=== PATIENT | male | born 1965 | race Two or more races ===

== ENCOUNTER 2018-01-13 05:21 | Inpatient (IN) | payer OTHER ==
[~2018-01-13] VITALS: Ht 175.3 cm; Wt 87.5 kg
[2018-01-13] VITALS (13 sets, daily range): BP systolic 98–124; BP diastolic 57–78
[~2018-01-13 05:21] MED LIST: NKM
[2018-01-13] MEDS ORDERED: EDURANT25 MG PO (06:11)
[2018-01-13] MEDS ORDERED: TIVICAY50 MG ORAL (06:11)
[2018-01-13] MEDS ORDERED: LEXAPRO20 MG ORAL (06:11)
[2018-01-13] MEDS ORDERED: DESCOVY PO (06:11)
[2018-01-13] MEDS ORDERED: Succinylcholine 20mg/ml 10ml vial ONE (06:44)
[2018-01-13] MEDS ORDERED: Zemuron 50mg/5ml Inj IV ONE (06:44)
[2018-01-13] MEDS ORDERED: Midazolam 2mg/2ml Inj ONE (06:57)
[2018-01-13] MEDS ORDERED: Lidocaine 1% MPF 10mg/ml 5ml ONE (06:57)
[2018-01-13] MEDS ORDERED: fentaNYL 100 mcg/2 mL IV ONE (06:57)
[2018-01-13] MEDS ORDERED: ceFAZolin sod 2 GM in D5W 110 ML IVPB ONE (07:00)
[2018-01-13] MEDS ORDERED: Propofol 1,000mg/ 100ml btl IV ONE (07:00)
[2018-01-13] MEDS ORDERED: EPINEPHrine 1mg/1ml Amp ONE (07:21)
[2018-01-13] MEDS ORDERED: Vancomycin 1gm inj IVPB ONE (07:21)
[2018-01-13] MEDS ORDERED: Bacitracin 50000 Units Vial ONE (07:21)
[2018-01-13] MEDS ORDERED: Bupivacaine 0.5% Inj 30 ml vial INJ ONE (07:21)
--- NOTE | 2018-01-13 07:22 | Pre-Procedure Note/Attestation ---
Pre-Procedure Note/Attestation Complete Prior to Procedure Procedure Narrative: right L4-5 laminotomies, medial facetectomies, foraminotomy and microdiscectomy Indications for Procedure Pre-Operative Diagnosis: lumbar radiculopathy and hnp Attestation I attest that I discussed the nature of the procedure; its benefits; risks and complications; and alternatives (and the risks and benefits of such alternatives ), prior to the procedure, with the patient (or the patient's legal promotional representative). I attest that, if there was a reasonable possibility of needing a blood transfusion, the patient (or the patient's legal promotional representative) was given the [facility] standardized written summary, pursuant to the Noble [place] Blood Safety Act ([place] Health and Safety Code # 1645, as amended). I attest that I re-evaluated the patient just prior to the surgery and that there has been no change in the patient's H&P, except as documented below: Devon Leo MD January 13, 2018 07:22
[2018-01-13] MEDS ORDERED: Thrombin 5000 units TOPIC ONE (07:27)
[2018-01-13] MEDS ORDERED: Sterile Water Irrig 1000ml IRRIG ONE (08:00)
[2018-01-13] MEDS ORDERED: LR 1000ml ONE (08:00)
[2018-01-13] MEDS ORDERED: NS Irrig 1000ml ONE (08:00)
[2018-01-13] MEDS ORDERED: Glycopyrrolate 0.2mg/ml 1ml Vial ONE (08:25)
[2018-01-13] MEDS ORDERED: Ketorolac 30mg Inj ONE (08:26)
[2018-01-13] MEDS ORDERED: Morphine Sulfate 10mg/ml Inj ONE (08:28)
[2018-01-13] MEDS ORDERED: Sodium Chloride 10ml vial INJ ONE (08:29)
[2018-01-13] MEDS ORDERED: LR 1000ml 1,000 ML IVLG SCH (08:37)
--- NOTE | 2018-01-13 08:37 | Anethesia Preoperative Eval ---
Anesthesia Pre-op PMH/ROS General Date of Evaluation: January 13, 2018 Time of Evaluation: 07:15 Anesthesiologist: Esther ASA Score: ASA 2 Mallampati Score Class I : Soft palate, uvula, fauces, pillars visible Class II: Soft palate, uvula, fauces visible Class III: Soft palate, base of uvula visible Class IV: Only hard plate visible Mallampati Classification: Class II Surgeon: Felipa Diagnosis: Lumbar radiculopathyt Surgical Procedure: L4-L5 laminotomy Anesthesia History: none Family History: no anesthesia problems Allergies: Coded Allergies: No Known Allergies (Unverified , 01/12/18) Medications: see eMAR Past Medical History Cardiovascular: Denies: HTN, CAD, [place], valve dz, arrhythmia, other Pulmonary: Denies: asthma, COPD, CRIS, other Gastrointestinal/Genitourinary: Reports: GERD - mild; Denies: CRI, ESRD, other Neurologic/Psychiatric: Reports: depression/anxiety; Denies: dementia, CVA, TIA, other Endocrine: Denies: DM, hypothyroidism, steroids, other HEENT: Denies: cataract (L), cataract (R), glaucoma, [place] (L), [place] (R), other Hematology/Immune: Reports: other - 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 Exam Physician Exam Last Vital Signs Date Time Temp Pulse Resp B/P (MAP) Pulse Ox O2 Delivery O2 Flow Rate FiO2 01/13/18 06:22 97.5 60 20 120/70 96 Room Air 97.5 Constitutional: NAD Neurologic: CN 2-12 intact Cardiovascular: RRR, no M/R/G Respiratory: CTA Gastrointestinal: S/NT/ND Airway Exam Mallampati Score: Class II MO: limited Neck: stiff ROM: limited Dentures: no upper, no lower Anesthesia Pre-op A/P Labs see chart Studies Pre-op Studies: EKG - NSR, CXR - WNL Risk Assessment & Plan Assessment: ASA 2 Plan: GA with ETT prone position, neuromonitoring Status Change Before Surgery: No Pre-Antibiotics Drug: Ancef 2 gr. Given Within 1 Hr of Incision: Yes Time Given: 07:46 Andrae Santana MD January 13, 2018 08:37
[2018-01-13] MEDS ORDERED: Meperidine 50mg/ml Inj(FOR RIGORS ONLY) IV PRN (08:45)
[2018-01-13] MEDS ORDERED: Metoclopramide 10mg/2ml Inj IVP PRN (08:45)
[2018-01-13] MEDS ORDERED: Ketorolac 30mg Inj IV PRN (08:45)
[2018-01-13] MEDS ORDERED: DiphenhydrAMINE 50mg/ml Inj IVP PRN (08:45)
[2018-01-13] MEDS ORDERED: Acetaminophen (Non formulary) 100 ML IV ONE (08:45)
[2018-01-13] MEDS ORDERED: fentaNYL 100 mcg/2 mL IV PRN (08:45)
[2018-01-13] MEDS ORDERED: Midazolam 2mg/2ml Inj IVP PRN (08:45)
--- NOTE | 2018-01-13 09:34 | Brief Operative Note ---
Immediate Post Operative Note Operative Note Pre-op Diagnosis: lumbar radiculopathy and hnp Procedure: L4-5 laminotomies, medial facetectomies, foraminotomies and microdiscectomy Post-op Diagnosis: same as pre-op Findings: consistent w/pre-op dx studies Surgeon: CAROLE Porcelain Enamel Laborer: AUDIE Anesthesiologist: VIRGILIO Specimen: yes Complications: none Condition: stable Fluids: 1000CC Estimated Blood Loss: volume - 10CC Drains: none Implant(s) used?: No Devon Leo MD January 13, 2018 09:34
--- NOTE | 2018-01-13 10:02 | Immediate Post-Op Evaluation ---
Immediate Post-Op Evalulation Immediate Post-Op Evalulation Procedure: L4-L5 laminotomy with discectomy and decompression Date of Evaluation: January 13, 2018 Time of Evaluation: 10:01 IV Fluids: 1100 Blood Products: none Estimated Blood Loss: <50 Urinary Output: none Blood Pressure Systolic: 122 Blood Pressure Diastolic: 68 Pulse Rate: 72 Respiratory Rate: 20 O2 Sat by Pulse Oximetry: 99 Temperature (Fahrenheit): 97.8 Pain Score (1-10): 2 Nausea: No Vomiting: No Complications none Patient Status: reacts, patent, extubated, none Hydration Status: adequate Andrae Santana MD January 13, 2018 10:02
[2018-01-13] MEDS ORDERED: Morphine Sulfate 4mg/ml Inj SUBQ PRN ×2 (12:00)
[2018-01-13] MEDS ORDERED: D5 1/2NS 1,000 ML IV SCH (12:00)
[2018-01-13] MEDS ORDERED: Naloxone 0.4mg/ml Inj IVP PRN (12:00)
--- NOTE | 2018-01-13 14:33 | History and Physical ---
History of Present Illness Present Illness Allergies: Coded Allergies: No Known Allergies (Unverified , 01/12/18) Medication History Scheduled Dolutegravir Sodium (Tivicay), 50 MG ORAL DAILY, (Reported) Escitalopram Oxalate* (Lexapro*), 20 MG ORAL DAILY, (Reported) No Known Medications* (NKM - No Known Medications*), 0 ., (Reported) Rilpivirine Hcl (Edurant), 25 MG PO da, (Reported) [Descovy], 200 MG PO DA, (Reported) Patient History Healthcare decision maker PATIENT Resuscitation status Full Code Advanced Directive on File Physical Exam Last 24 Hour Vital Signs Date Time Temp Pulse Resp B/P (MAP) Pulse Ox O2 Delivery O2 Flow Rate FiO2 01/13/18 12:20 98.4 60 18 112/66 95 Nasal Cannula 3.0 98.4 01/13/18 11:25 98.4 66 18 98/62 95 Nasal Cannula 3.0 98.4 01/13/18 11:05 97.3 68 18 102/57 95 Nasal Cannula 3.0 97.3 01/13/18 10:41 97.2 66 18 110/65 100 Nasal Cannula 3.0 97.2 01/13/18 10:38 69 18 100/68 100 Nasal Cannula 3.0 01/13/18 10:29 96.8 01/13/18 10:25 71 18 107/64 100 Nasal Cannula 3.0 01/13/18 10:15 72 18 116/67 100 Simple Mask 7.0 01/13/18 10:02 96.8 01/13/18 10:02 72 20 99 01/13/18 10:00 67 20 106/69 100 Simple Mask 7.0 01/13/18 09:55 67 20 107/70 100 Simple Mask 7.0 01/13/18 09:50 96.8 74 20 103/69 100 Simple Mask 7.0 96.8 01/13/18 06:22 97.5 60 20 120/70 96 Room Air 97.5 Height (Feet): 5 Height (Inches): 9.00 Weight (Pounds): 193 Medications Current Medications Medications (Trade) Dose Ordered Sig/Ling Route PRN Reason Start Time Stop Time Status Last Admin Dose Admin Acetaminophen (Tylenol) 650 mg Q4H PRN ORAL headache or temp>101 01/13/18 12:00 02/12/18 11:59 Cefazolin Sodium 1 gm/Dextrose 110 ml @ 220 mls/hr Q8H IV 01/13/18 15:30 01/14/18 07:59 Dextrose/Sodium Chloride 1,000 ml @ 100 mls/hr Q10H IV 01/13/18 12:00 02/12/18 11:59 01/13/18 12:01 Docusate Sodium (Colace) 100 mg TWICE A DAY ORAL 01/13/18 18:00 02/12/18 17:59 Morphine Sulfate (Morphine Sulfate) 4 mg Q3H PRN SUBQ Severe Pain (Pain Scale 7-10) 01/13/18 12:00 01/20/18 11:59 01/13/18 12:20 Morphine Sulfate (Morphine Sulfate) 4 mg Q4H PRN SUBQ Moderate Pain (Pain Scale 4-6) 01/13/18 12:00 01/20/18 11:59 Naloxone HCl (Narcan) 0.1 mg PRN PRN IVP RR<12/min, pt unarousable 01/13/18 12:00 02/12/18 11:59 Blade Putnam MD January 13, 2018 14:33
[2018-01-13] MEDS ORDERED: ceFAZolin sod 1 GM in D5W 110 ML IV SCH (15:30)
[2018-01-13] MEDS ORDERED: SOMA350 MG PO (16:51)
[2018-01-13] MEDS ORDERED: NORCO 5-325 TA1 EACH ORAL (16:51)
[2018-01-13] MEDS ORDERED: NAPROXEN250 MG ORAL (16:52)
[2018-01-13] MEDS ORDERED: Docusate 100mg cap ORAL SCH (18:00)
--- NOTE | 2018-01-14 22:32 | Operative Note - Dictated ---
DATE OF OPERATION: 01/13/2018 PREOPERATIVE DIAGNOSIS: L4-L5 disc protrusion with stenosis and compression with right lower extremity radiculopathy. POSTOPERATIVE DIAGNOSIS: L4-L5 disc protrusion with stenosis and compression with right lower extremity radiculopathy. PROCEDURE PERFORMED: 1. Right-sided L4-5 medial facetectomy, laminotomy, foraminotomy and microdiskectomy. 2. Intraoperative use of microscope for microdissection. SURGEON: Devon Loe M.D. STOCK HOLDER: Bobby Currie M.D. ANESTHESIOLOGIST: Andrae Santana M.D. ANESTHESIA: General endotracheal anesthesia. INTRAOPERATIVE FINDINGS: L4-L5 disc protrusion with stenosis and impingement of the traversing L5 nerve root as well as foraminal stenosis. ESTIMATED BLOOD LOSS: 10 mL. FLUIDS: 1000 mL of crystalloid. INDICATIONS: This patient has failed nonoperative treatment, and options for above the above treatment was given. Risks, alternatives, and benefits were discussed with the patient. The patient wished to proceed. Consent form was signed. DESCRIPTION OF OPERATION: The patient brought to the operating room supine on a stretcher. Subsequently, appropriate IV lines were placed and 2 g of Ancef was administered. Anesthesia was induced. The patient was successfully intubated. A surgical time-out was called. Consent form and surgical site were reviewed. Sequential compression devices were placed onto the bilateral lower extremities. The patient was gently turned over prone onto the Hardik frame table. All bony prominences were well padded and the abdomen was assured to lay freely. The L4-L5 interspace was positively identified preoperatively via fluoroscopy. The patient was prepped and draped in the usual sterile fashion with alcohol, ChloraPrep and Ioban draping. At this point, the intraoperatively sterilely draped microscope was brought into the field and a midline incision was carried out with a #15 scalpel. At this point, subperiosteal dissection was carried out with monopolar cautery towards the right side of the lamina at L4 and L5. The lateral facet joint capsule was well preserved. A blacking machine operator retractors were set into place and a radiopaque marker was placed at the pedicle level. The L5 pedicle was identified and thus the L4-L5 interspace was positively identified. The intraoperatively sterilely draped microscope was used for microdissection of the neural elements including the traversing L5 nerve root and for microdiskectomy. Now attention was diverted to the interlumbar laminotomy and with a high-speed drill, straight and curved curette, #2 through #5 Kerrison punches, interlumbar laminotomy of the lamina of L4 and L5 on the right side was done and medial facetectomy was accomplished and the ligamentum flavum, which was hypertrophied, was removed and a decompression of the lateral recess entailed with #2 Kerrison punches. The exiting nerve root was also decompressed. Now, with a Quebeck 4 retractor as well as a nerve root retractor, the neural elements were carefully retracted medially and a large disc herniation was found at L4-L5 on the right side impinging onto the neural elements and the traversing L5 nerve root. At this point with a #11 blade, a cruciate incision was made into the posterior annulus and with the use of a Macdonald rongeur, Yesenia curette, nerve hook, Oliver probe, a diskectomy was carried out. A microdissection and neurolysis of the nerve of the traversing nerve was done as well. All loose disc material was removed. Pituitary rongeurs, Peapod rongeur, forward angled pituitary rongeurs were also used. Disk space irrigation was used. All loose debris was removed. By the end of the diskectomy, the floor of the canal was flat. The foraminal space, lateral recess, subarticular recess, and central canal were found to be completely decompressed. A Valsalva at 40 mmHg was done. There was no CSF leak. At this point, further checking revealed complete decompression. Hemostasis was achieved with Gelfoam, thrombin, FloSeal and bipolar cautery. Attention was now diverted to closure. The dorsal lumbar fascia was closed with #1 Vicryl sutures in a watertight interrupted fashion. The subdermal and subcuticular layers were closed with 2-0 Vicryl sutures. The skin was closed with Dermabond. Sterile dressing and tape were placed. All sponge, needle, and instrument counts were correct. EMG and SSEP neuromonitoring was done throughout the case and remained stable with no activity during the decompression and now the patient was turned supine, was extubated in stable condition, was taken to the recovery room in stable condition, and found to be neurovascularly intact. Devon Leo M.D. DR: LAMONT JOB#: [id number] CC:
--- NOTE | 2018-01-15 13:30 | Discharge Summary ---
Discharge Summary Discharge Summary _ DATE OF ADMISSION: 01/13/2018 DATE OF DISCHARGE: 01/13/2018 CONSULTANTS: Dr. Blade Putnam BRIEF HOSPITAL COURSE: Patient is a 52-year-old male who was diagnosed with L4-L5 disc protrusion with stenosis and compression presenting with right lower extremity radiculopathy was admitted and underwent right-sided L4-L5 medial facetectomy, laminotomy, foraminotomy and microdiscectomy. He tolerated procedure well and postoperatively was given pain management. He was placed on SCDs for DVT prophylaxis. He was encouraged use of incentive spirometry. Diet was advanced. His vitals were stable and had good pain control. He was ambulating well. He was eventually discharged home. FINAL DIAGNOSES: L4-L5 disc protrusion with stenosis and radiculopathy Status post L4-L5 medial facetectomy, laminotomy, foraminotomy and microdiscectomy (Please refer to operative report) DISPOSITION: Patient was discharged home. DISCHARGE MEDICATIONS: Refer to Discharge Medication List. DISCHARGE INSTRUCTIONS: Follow up in a week. I have been assigned to dictate discharge summary on this account, and I was not involved in the patient's management. Yessy Cisneros NP Jan 15, 2018 13:30
--- NOTE | 2018-01-18 15:08 | Diagnostic Imaging Report ---
Indication: Pain, intraoperative Technique: Intraoperative imaging Comparison: none Findings: Single lateral view demonstrates a surgical tool projected posterior to what is presumably the L5 vertebral body Impression: Intraoperative imaging, as described
== END 2018-01-13 19:57 | disposition home or self-care (01) | DRG 518 ==
LOC: SDSOVERFLO 05:21 → 3E 11:07
PROC: 01NB0ZZ Release Lumbar Nerve, Open Approach (ICD-10-PCS; principal; 2018-01-13 07:30)
PROC: 0SB20ZZ Excision of Lumbar Vertebral Disc, Open Approach (ICD-10-PCS; principal; 2018-01-13 07:30)
DX: M51.16 Intervertebral disc disorders with radiculopathy, lumbar region (principal); B20 Human immunodeficiency virus [HIV] disease; M48.061 Spinal stenosis, lumbar region without neurogenic claudication; K21.9 Gastro-esophageal reflux disease without esophagitis; F41.8 Other specified anxiety disorders
CPT/HCPCS: 36415; 72020; 76001; 86850; 86900; 86901; 87081; 94003; 94150; J2250; J2405

== ENCOUNTER 2018-02-04 13:09 | Inpatient (IN) | payer OTHER ==
[2018-02-04] VITALS (9 sets, daily range): BP systolic 114–137; BP diastolic 62–87
[~2018-02-04] VITALS: Ht 175.3 cm; Wt 88.5 kg
[~2018-02-04 13:09] MED LIST changes: +DESCOVY PO; +EDURANT25 MG PO; +LEXAPRO20 MG ORAL; +NAPROXEN250 MG ORAL; +NORCO 5-325 TA1 EACH ORAL; +SOMA350 MG PO; +TIVICAY50 MG ORAL
[2018-02-04] MEDS ORDERED: Zemuron 50mg/5ml Inj IV ONE ×2 (13:46→14:44)
[2018-02-04] MEDS ORDERED: Propofol 200mg/20ml IV ONE (13:49)
[2018-02-04] MEDS ORDERED: Lidocaine 1% MPF 10mg/ml 5ml ONE (13:49)
[2018-02-04] MEDS ORDERED: Dexamethasone 4mg/ml vial ONE (13:52)
[2018-02-04] MEDS ORDERED: Lacri-Lube Opth Oint 3.5gm ONE (13:59)
[2018-02-04] MEDS ORDERED: EPINEPHrine 1mg/1ml Amp ONE (13:59)
[2018-02-04] MEDS ORDERED: Vancomycin 1gm inj IVPB ONE ×2 (14:00→17:01)
[2018-02-04] MEDS ORDERED: Thrombin 5000 units TOPIC ONE (14:01)
[2018-02-04] MEDS ORDERED: Bupivacaine 0.5% Inj 30 ml vial INJ ONE (14:01)
[2018-02-04] MEDS ORDERED: Bacitracin 50000 Units Vial ONE (14:01)
[2018-02-04] MEDS ORDERED: fentaNYL 100 mcg/2 mL IV ONE ×2 (14:05→17:42)
[2018-02-04] MEDS ORDERED: Succinylcholine 20mg/ml 10ml vial ONE (14:05)
[2018-02-04] MEDS ORDERED: Ketamine 500mg Inj ONE (14:07)
[2018-02-04] MEDS ORDERED: ZYRTEC10 MG ORAL (14:20)
[2018-02-04] MEDS ORDERED: NS Irrig 1000ml ONE (14:50)
[2018-02-04] MEDS ORDERED: NS 275ml ONE (14:50)
[2018-02-04] MEDS ORDERED: LR 1000ml ONE (14:50)
[2018-02-04] MEDS ORDERED: Propofol 1,000mg/ 100ml btl IV ONE (14:50)
[2018-02-04] MEDS ORDERED: Sterile Water Irrig 1000ml IRRIG ONE (14:50)
--- NOTE | 2018-02-04 14:52 | Infectious Diseases Prog Note ---
Assessment/Plan Assessment/Plan Full consult dictated: A) 1) possible lumbar spine/back post-operative abscess vs hematoma 2) s/p L4-L5 laminotomy, facetectomy, foraminotomy and microdiskectomy for L4 -L5 protrusion with stenosis and compression and right lower extremity radiculopathy 3) HIV, gerd, depression/anxiety 4) allergies - negative 5) sh-negative, mar noted, notes and records noted 6) d/w RN P) 1) patient for surgery today for possible I/D and cultures 2) post-operative vancomycin and cefepime 3) f/u on labs and cultures 4) d/w Dr. Leo 5) thank you Subjective Allergies: Coded Allergies: No Known Allergies (Unverified , 01/12/18) Objective Vital Signs Last 24 Hour Vital Signs Date Time Temp Pulse Resp B/P (MAP) Pulse Ox O2 Delivery O2 Flow Rate FiO2 02/04/18 14:21 98.2 63 18 129/80 95 Room Air 98.2 Height (Feet): 5 Height (Inches): 9.00 Weight (Pounds): 195 Shanell Doe MD Feb 04, 2018 14:52
--- NOTE | 2018-02-04 14:56 | Anethesia Preoperative Eval ---
Anesthesia Pre-op PMH/ROS General Date of Evaluation: Feb 04, 2018 Time of Evaluation: 14:10 Anesthesiologist: ASA Score: ASA 3 Mallampati Score Class I : Soft palate, uvula, fauces, pillars visible Class II: Soft palate, uvula, fauces visible Class III: Soft palate, base of uvula visible Class IV: Only hard plate visible Mallampati Classification: Class II Surgeon: eliezer Diagnosis: lumbar radiculopathy Surgical Procedure: reexploration L4,5 laminectomy, excision of mass, decompress Anesthesia History: none Allergies: Coded Allergies: No Known Allergies (Unverified , 01/12/18) Past Medical History Cardiovascular: Denies: HTN, CAD, DC, valve dz, arrhythmia, other Pulmonary: Denies: asthma, COPD, CRIS, other Gastrointestinal/Genitourinary: Denies: GERD, CRI, ESRD, other Neurologic/Psychiatric: Reports: depression/anxiety; Denies: dementia, CVA, TIA, other Endocrine: Reports: other; Denies: DM, hypothyroidism, steroids HEENT: Denies: cataract (L), cataract (R), glaucoma, [place] (L), [place] (R), other Hematology/Immune: Reports: other - HIV; Denies: anemia, DVT, bleeding disorder Anesthesia Pre-op Phys. Exam Physician Exam Last Vital Signs Date Time Temp Pulse Resp B/P (MAP) Pulse Ox O2 Delivery O2 Flow Rate FiO2 02/04/18 14:21 98.2 63 18 129/80 95 Room Air 98.2 Constitutional: NAD Cardiovascular: RRR Respiratory: CTA Gastrointestinal: S/NT/ND Airway Exam Mallampati Score: Class II MO: full ROM: full Teeth: intact Anesthesia Pre-op A/P Risk Assessment & Plan Assessment: asa 3 Plan: etga Pre-Antibiotics Drug: ancef 2 grams Given Within 1 Hr of Incision: Yes Time Given: 15:45 Erendira Keller M.D. Feb 04, 2018 14:56
--- NOTE | 2018-02-04 15:01 | Pre-Procedure Note/Attestation ---
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 I attest that, if there was a reasonable possibility of needing a blood transfusion, the patient (or the patient's legal freight representative) was given the [facility] standardized written summary, pursuant to the [place] Blood Safety Act ([place] Health and Safety Code # 1645, as amended). I attest that I re-evaluated the patient just prior to the surgery and that there has been no change in the patient's H&P, except as documented below: Devon Leo MD Feb 04, 2018 15:01
[2018-02-04] MEDS ORDERED: LR 1000ml 1,000 ML IVLG SCH (17:11)
[2018-02-04] MEDS ORDERED: Midazolam 2mg/2ml Inj IVP PRN (17:15)
[2018-02-04] MEDS ORDERED: DiphenhydrAMINE 50mg/ml Inj IVP PRN (17:15)
[2018-02-04] MEDS ORDERED: Labetalol 5mg/ml 20ml vial IV PRN (17:15)
[2018-02-04] MEDS ORDERED: Hydromorphone 0.5mg/0.5ml inj IVP PRN (17:15)
[2018-02-04] MEDS ORDERED: fentaNYL 100 mcg/2 mL IV PRN (17:15)
--- NOTE | 2018-02-04 17:17 | Immediate Post-Op Evaluation ---
Immediate Post-Op Evalulation Immediate Post-Op Evalulation Procedure: reexploration L4,5, laminectomy,excision Date of Evaluation: Feb 04, 2018 Time of Evaluation: 17:44 IV Fluids: LR 700ml Blood Products: 0 Estimated Blood Loss: 50ml Urinary Output: 100ml Blood Pressure Systolic: 137 Blood Pressure Diastolic: 87 Pulse Rate: 77 Respiratory Rate: 25 O2 Sat by Pulse Oximetry: 99 Temperature (Fahrenheit): 98 Pain Score (1-10): 8 Nausea: No Vomiting: No Complications none Patient Status: awake, patent, none Hydration Status: adequate Drug: ancef 2 gram Given Within 1 Hr of Incision: Yes Time Given: 15:45 Erendira Keller M.D. Feb 04, 2018 17:17
--- NOTE | 2018-02-04 17:39 | Brief Operative Note ---
Immediate Post Operative Note Operative Note Pre-op Diagnosis: epidural mass s/p microdiscectomy at L4-5 Procedure: re-exploration L4-5, laminectomy, excision of mass Post-op Diagnosis: same as pre-op Findings: consistent w/pre-op dx studies Surgeon: Felipa Android Architect: Kush Anesthesiologist: Anesthesia: general Specimen: yes Complications: none Condition: stable Fluids: 700cc Estimated Blood Loss: volume - 50cc Drains: hemovac Implant(s) used?: No Devon Leo MD Feb 04, 2018 17:39
[2018-02-04] MEDS ORDERED: Morphine Sulfate 4mg/ml Inj IV PRN (17:45)
[2018-02-04] MEDS ORDERED: Morphine Sulfate 2mg/ml Inj IV PRN (17:45)
[2018-02-04] MEDS ORDERED: HYDROcodone/Acetamin 7.5/325 tab ORAL PRN (17:45)
[2018-02-04] MEDS ORDERED: Norco 5mg/325mg tab ORAL PRN (17:45)
[2018-02-04] MEDS ORDERED: Naloxone 0.4mg/ml Inj IVP PRN (17:45)
[2018-02-04] MEDS: D5 1/2NS 1,000 ML IV SCH (20:24)
[2018-02-04] MEDS: Morphine Sulfate 4mg/ml Inj IV PRN (21:23)
[2018-02-04] MEDS: ceFAZolin sod 1 GM in D5W 110 ML IV SCH (23:45)
[2018-02-05] VITALS: BP 102/59
[2018-02-05] MEDS: Morphine Sulfate 4mg/ml Inj IV PRN ×3 (01:22→21:43)
--- NOTE | 2018-02-05 01:30 | Consultation ---
DATE OF CONSULTATION: 02/04/2018 INFECTIOUS DISEASE CONSULTATION CONSULTING PHYSICIAN: Shanell Doe M.D. ATTENDING PHYSICIAN: Devon Leo M.D. REFERRING PHYSICIAN: Devon Leo M.D. REASON FOR CONSULTATION: Possible lumbar spine/back abscess versus hematoma. CHIEF COMPLAINT: The patient's chief complaint coming in to the hospital is L4-L5 mass and excision. HISTORY OF PRESENT ILLNESS: This is a very pleasant 52-year-old male, who I saw in the preop area at [facility], who several weeks ago, I believe three weeks ago, exact date was 01/13/2018, had a history of L4-L5 disc protrusion with stenosis and compression with the right lower extremity radiculopathy. The patient underwent L4-L5 medial laminotomy, micro diskectomy, facetectomy, laminotomy, and foraminotomy. The patient now presents with back pain. An MRI showed that he had L4-L5 mass of questionable abscess versus hematoma. Case was discussed with Dr. Leo. Infectious Disease consultation is requested for assisting this patient. PAST MEDICAL HISTORY: Per the records, the patient has history of L4-L5 protrusion and stenosis with right lower extremity radiculopathy, status post surgery for that as discussed including the L4-L5 microdiskectomy, foraminotomy, laminotomy, and facetectomy. The patient also has history of GERD per the records, anxiety and depression per the records, and history of HIV per the records. MEDICATIONS: During I think in the preop area, he has gotten fentanyl, ketamine, and Versed. On reviewing the MAR, it looks like vancomycin was given, epinephrine, dexamethasone, Zofran, propofol, lidocaine, famotidine, and Zemuron. On review of his medical reconciliation, he is on Lexapro, Tivicay, Zyrtec, Soma, hydrocodone, Naprosyn, Edurant, and Descovy once 200 mg, it looks like daily and Tivicay is 50 mg daily. ALLERGIES: No known drug allergies. SOCIAL HISTORY: Negative for smoking, alcohol, or drug abuse. FAMILY HISTORY: Noncontributory. REVIEW OF SYSTEMS: The patient's main issue is the back pain. He denies any shortness of breath, chest pain, nausea, vomiting, or diarrhea. No urinary symptoms mentioned. No headache, change in vision, or rash, but he did have back pain. As discussed earlier, he has a history of right lower extremity radiculopathy. PHYSICAL EXAMINATION: VITAL SIGNS: Currently, temperature is 98.2, pulse rate is 60, respiratory rate 18, blood pressure 129/80, and saturation 95%. GENERAL: Alert, responsive, and oriented x3. HEAD AND NECK: Oral, no thrush. Eye exam, no icterus. Normocephalic. HEART: Regular. No gallop or murmur. ABDOMEN: Soft. Positive bowel sounds. Nontender. LUNGS: Clear. Bilateral rhonchi and rales. SKIN: No obvious rash. MUSCULOSKELETAL: Limited. He is able to move all 4 extremities. NEUROLOGIC: Seems to be intact and nonfocal. Otherwise, exam is deferred since he is in the preop area. He is alert and oriented x3. GENITOURINARY: Did not see any obvious [place] at this time. Deferred. LABORATORY AND DIAGNOSTIC DATA: Laboratory data pending. On discussion with Dr. Leo, the MRI showed L4-L5 spine mass, unclear hematoma versus abscess. ASSESSMENT AND PLAN: 1. The patient has L4-L5 mass, which could be a hematoma versus abscess. The patient will be undergoing operation soon for possible excision of the mass and evaluation. Cultures will be taken. At this time, we will give the patient antibiotics, vancomycin and cefepime postoperatively if indicated and then we will follow up on the cultures. Watch the patient's laboratories closely. We will follow up postop on this patient and again assess the L4-L5 level. 2. The patient has a history of L4-L5 protrusion with stenosis, compression of right lower extremity radiculopathy, status post L4-L5 laminectomy, facetectomy, foraminotomy, and microdiskectomy. 3. History of human immunodeficiency virus. We will continue antiretrovirals including Descovy and Tivicay. The patient should be followed as an outpatient by his primary physician, who is treating him for this. 4. History of gastroesophageal reflux disease per the record. 5. History of depression and anxiety per the record. 6. Pain management per Surgery. 7. Allergies are negative. 8. Social history is negative. 9. Family history is noncontributory. 10. MAR is noted. 11. Case was discussed with RN in the preop area. 12. Case was discussed with Dr. Loe. 13. Case was discussed with the patient. 14. Continue treatment per Dr. Leo and consultants. 15. Notes and records were noted. Orders were noted. Shanell Doe M.D. DR: AMBAR JOB#: [id number] CC: JOSH
[2018-02-05 04:00] VITALS: BP 111/68
[2018-02-05] MEDS: D5 1/2NS 1,000 ML IV SCH (05:37)
[2018-02-05] MEDS: ceFAZolin sod 1 GM in D5W 110 ML IV SCH ×2 (08:05→15:34)
--- NOTE | 2018-02-05 08:49 | 48 Hour Post Anesthesia Eval ---
Post Anesthesia Evaluation Procedure: reexploration L4,5, laminectomy,excision Date of Evaluation: Feb 05, 2018 Time of Evaluation: 08:48 Blood Pressure Systolic: 116 0: 68 Pulse Rate: 72 Respiratory Rate: 22 Temperature (Fahrenheit): 97.8 O2 Sat by Pulse Oximetry: 98 Airway: patent Nausea: No Vomiting: No Pain Intensity: 4 Hydration Status: adequate Cardiopulmonary Status: stable Mental Status/LOC: patient returned to baseline Follow-up Care/Observations: n/a Post-Anesthesia Complications: none Follow-up care needed: N/A Andrae Santana MD Feb 05, 2018 08:49
[2018-02-05] MEDS: Docusate 100mg cap ORAL SCH ×2 (09:05→17:31)
[2018-02-05] MEDS: HYDROcodone/Acetamin 7.5/325 tab ORAL PRN ×3 (09:05→17:31)
[2018-02-05] MEDS ORDERED: Tubing IV Secondary IV ONE (10:34)
[2018-02-05] MEDS ORDERED: D5 1/2NS 1000ml IV ONE (10:34)
--- NOTE | 2018-02-05 11:22 | General Progress Note ---
Progress Note Progress Note Pt doing well post op no leg pain moderate lbp avss a and o times 3 5/5 ble calves soft and nt hv 50 cc lt intact a: doing well post op p: pain meds awaitng final path results oob and pt brace spinal precautions anticipate dc tomorrow Devon Leo MD Feb 05, 2018 11:22
--- NOTE | 2018-02-05 18:15 | Operative Note - Dictated ---
DATE OF OPERATION: 02/04/2018 PREOPERATIVE DIAGNOSES: L4-L5 mass with compression of thecal sac and right traversing and exiting L4 and L5 nerve roots with severe right lower extremity radiculopathy, status post lumbar microdiskectomy and microdecompression on 01/13/2018. POSTOPERATIVE DIAGNOSES: L4-L5 mass with compression of thecal sac and right traversing and exiting the L4 and L5 nerve roots with severe right lower extremity radiculopathy, status post lumbar microdiskectomy and microdecompression on 01/13/2018. PROCEDURE PERFORMED: 1. Re-exploration, L4-L5. 2. Laminectomy, L4-L5. 3. Excision of mass at L4-L5 with microdissection and decompression of neural elements. 4. Intraoperative use of microscope. SURGEON: Devon Leo M.D. CRANKSHAFT GRINDER: Bobby Currie M.D. ANESTHESIA: General endotracheal anesthesia. ANESTHESIOLOGIST: Erendira Keller M.D. INTRAOPERATIVE FINDING: Large fibrocartilaginous mass compressing the thecal sac and the right exiting and traversing nerve root at L4-L5. EBL: 50 mL. FLUIDS: 700 mL. SPECIMEN: Mass sent for specimen analysis. INDICATIONS: The patient is a pleasant gentleman who underwent microdissection and microdiskectomy right L4-L5 on 01/13/2018. Postoperatively, he presented with worsening right lower extremity pain. Postoperative MRI of the lumbar spine with and without contrast revealed a large mass compressing the thecal sac and the right exiting L4 nerve root and the right traversing L5 nerve root. This was a rim enhancing lesion on MRI. The patient also had preoperative venous Doppler, which was negative for DVT. Recommendation for re-exploration at L4-L5 laminectomy, decompression, and excision of mass was made for the patient. Risks, alternatives, and benefits were discussed with the patient at length, which included, but not limited to anesthesia complications including , medical complications including liver, kidney, cardiopulmonary deficits, bleeding, infection, dural tear, CSF leak, nerve root injury, pars fracture, instability, and reherniation as well as continued symptoms. The patient understood and wished to proceed. DESCRIPTION OF OPERATION: The patient was brought into the operating room supine on a stretcher. Appropriate IV lines were placed by the anesthesiologist. Anesthesia was induced. The patient was successfully intubated. Sequential compression devices were placed onto the bilateral lower extremities. A Velasco was placed under sterile conditions. Neural monitoring leads were placed and initial neural monitoring revealed a significant decrease at posterior to the right L4 nerve root, which by the end of the decompression returned to normal. At this point, all bony prominences were well padded. The abdomen was assured to lay freely. Myself and my bookkeeper assistant were prepped and gowned as well. At this point, the intraoperatively sterilely draped microscope was brought into the field and an incision was made overlying the previous incision with slight extension caudal and cephalad. Dissection was carried out on the left side at the lamina of L4 and L5. The left facet joint capsule was well preserved. Dissection at right L4-L5 was also done and Vicky retractors were set into place. Significant amount of scar was found at the right L4-L5 interlaminar facet indicative of the previous surgery at right L4-L5 where microdissection and microdiskectomy were previously done on 01/13/2018. At this point, attention was diverted to extend the laminotomy to laminectomy. A complete laminectomy at L4-L5 was done with the use of Le[place]ell rongeur, straight and curved curettes, #2 through #5 Kerrison punches, and a high-speed drill. There was extensive amount of epidural scar over the dura at L4-L5 on the common dural sac. Once the laminectomy was completed, the ligamentum flavum on the left side was also removed at L4-L5 and at this point, microdissection of the neural elements revealed a large fibrocartilaginous mass, presumably a recurrent disc herniation, which was causing significant compression of the thecal sac and the right L4 exiting nerve root and the right L5 traversing nerve root. With a curved curette, the fibrocartilaginous mass was dissected away from the dura. There was significant amount of scar and the fibrocartilaginous mass was removed in total and sent off to pathology. Frozen section by the pathologist was done during the operation and she came down to the operating room and was reported that her initial description was that this is a fibrocartilaginous disc height material and presumably, a recurrent disk herniation at L4-L5. At this point, Valsalva at 40 mmHg was done. There was no CSF leak. Copious triple antibiotic solution was also placed. Of note, right after the incision was made, culture swabs were taken for Gram stain as well as cultures. Immediately after the cultures were taken, 2 g of Ancef was administered IV intraoperatively. Now, attention was diverted to microdissection. Further inspection of the annulotomy from the surgery from 01/13/2018 was done. There was no other free fragment of disc and at this point neuromonitoring revealed the right L4 nerve root potentials have returned to normal and there was a significant improvement after the removal of the fibrocartilaginous mass. Once this was completed, attention now was diverted to closure. Meticulous hemostasis was achieved with Gelfoam, thrombin, bipolar cautery, and FloSeal. A 1 g of vancomycin powder was placed suprafascially and subfascially. A subfascial Hemovac drain was placed. The dorsal lumbar fascia was closed with #1 Vicryl sutures in a watertight interrupted fashion. The subdermal and subcuticular layers were closed with 2-0 Vicryl sutures. The skin was closed with Dermabond. Sterile dressing tape was placed. The patient was turned supine, was extubated, and taken to recovery room in stable condition and found to be neurovascularly intact. Devon Leo M.D. DR: Brayan JOB#: [id number] CC:
[2018-02-05 20:00] VITALS: BP 104/66
[2018-02-06] VITALS: BP 121/74
[2018-02-06 04:00] VITALS: BP 130/75
[2018-02-06 08:00] VITALS: BP 111/72
[2018-02-06] MEDS: Docusate 100mg cap ORAL SCH (08:39)
[2018-02-06 11:55] VITALS: BP 112/76
[2018-02-06] MEDS ORDERED: PERCOCET 5-3251 EACH ORAL (13:41)
[2018-02-06] MEDS ORDERED: IBUPROFEN100 M2 PO (13:43)
--- NOTE | 2018-02-07 11:34 | Discharge Summary ---
Discharge Summary Hospital Course Date of Admission Feb 04, 2018 at 13:09 Date of Discharge Feb 06, 2018 at 15:00 Admitting Diagnosis lumbar radiculopathy Reason for Hospitalization: Elective surgery HPI Anirudh Maynard is a 52 year old male who was admitted on Feb 04, 2018 at 13:09 for Lumbar Radiculopathy. Patient was admitted for elective surgery. Consultations dr Doe -ID specialist Procedures S/P 02/[address] LAM 1. Re-exploration, L4-L5. 2. Laminectomy, L4-L5. 3. Excision of mass at L4-L5 with microdissection and decompression of neural elements. 4. Intraoperative use of microscope. Hospital Course s/p surgery. course of recovery uneventful Infectious disease specialist closely followed. initially empiric antibiotic as per ID culture negative, afebrile, antibiotics stopped upon discharge follow up with pathology results pain management provided pain addressed and controlled bowel regimen instituted neurovascularly intact initially Hemovac with minimal drainage. spinal precautions maintained brace on as per surgery instruction follow up with pathology results ambulated with PT ,safe for ambulation tolerated diet voided freely continue ART for HIV and follow-up with outpatient HIV provider GI prophylaxis provided home medications resumed discharge instruction provided stable for discharge home outpatient follow-up with a surgeon FINAL DIAGNOSES: 1.L4-L5 mass (with compression of thecal sac and right traversing and exiting the L4 and L5 nerve roots with 2. Severe right lower extremity radiculopathy, 3. s/p lumbar microdiskectomy and microdecompression on 01/13/2018. 4. s/p 02/04 re-exploration L4-5, laminectomy L4-5, excision of mass 5. L4-5 epidural mass, abscess vs hematoma 6. HIV status 7. GERD 8. Depression, anxiety Discharge Medications Continued Medications: Carisoprodol* (Soma*) 350 Mg Tablet 350 MG PO TID, #25 TAB Ibuprofen (Ibuprofen) 100 Mg Tablet 800 MG PO THREE TIMES A DAY for SPASM, TAB (This prescription has been renewed) Oxycodone/Acetaminophen 5-325* (Percocet 5-325 Mg Tablet*) 1 Each Tablet 1 TAB ORAL Q6H PRN for For Pain, #40 TAB 0 Refills (This prescription has been renewed) Discharge Condition Upon Discharge: stable Discharge Disposition Patient was discharged to Home () Discharge Instructions Discharge Instructions Special Instructions I have been assigned to complete a D/C Summary on this account. I was not involved in the patient management Mere Thomas NP Feb 07, 2018 11:34
== END 2018-02-06 15:00 | disposition home or self-care (01) | DRG 518 ==
LOC: SDSOVERFLO 13:09 → 3E 19:53
PROC: 00BY0ZZ Excision of Lumbar Spinal Cord, Open Approach (ICD-10-PCS; principal; 2018-02-04 15:00)
DX: M51.16 Intervertebral disc disorders with radiculopathy, lumbar region (principal); B20 Human immunodeficiency virus [HIV] disease; G06.1 Intraspinal abscess and granuloma; G95.29 Other cord compression; G97.62 Postprocedural hematoma of a nervous system organ or structure following other procedure; K21.9 Gastro-esophageal reflux disease without esophagitis; F41.8 Other specified anxiety disorders; Z87.891 Personal history of nicotine dependence; M79.2 Neuralgia and neuritis, unspecified; Y83.8 Other surgical procedures as the cause of abnormal reaction of the patient, or of later complication, without mention of misadventure at the time of the procedure
CPT/HCPCS: 36415; 86850; 86900; 86901; 87070; 87075; 87081; 87205; 94003; 94150; J2405